=== PATIENT | female | born 1995 | race Caucasian/White ===

== ENCOUNTER 2017-02-08 00:42 | Outpatient (CLI) | payer MEDICAID, OTHER ==
[~2017-02-08] VITALS: Ht 154.9 cm; Wt 87.7 kg
[2017-02-08 00:46] VITALS: Ht 154.9 cm; Wt 87.7 kg
[2017-02-08 01:15] VITALS: BP 110/60; PULSE 85; RESP 18
[2017-02-08] MEDS ORDERED: PRENAT PO (01:19)
[2017-02-08 01:55] LABS: ADD SCAN DIFF NO; BASOPHIL # 0.1 10^3/ul (0.0-0.1); BASOPHILS % 0.4 % (0.0-2.0); EOSINOPHILS # 0.1 10^3/ul (0.0-0.5); EOSINOPHILS % 1.1 % (0.0-7.0); HEMATOCRIT 32.4 % (37.0-47.0); HEMOGLOBIN 10.3 g/dl (12.0-16.0); LYMPHOCYTES # 1.9 10^3/ul (0.8-2.9); LYMPHOCYTES % 16.4 % (15.0-51.0); MEAN CORPUSCULAR HEMOGLOBIN 28.9 pg (29.0-33.0); MEAN CORPUSCULAR HGB CONC 31.8 g/dl (32.0-37.0); MEAN CORPUSCULAR VOLUME 90.8 fl (82.0-101.0); MEAN PLATELET VOLUME 10.5 fl (7.4-10.4); MONOCYTE # 0.9 10^3/ul (0.3-0.9); MONOCYTES % 7.8 % (0.0-11.0); NEUTROPHIL # 8.7 10^3/ul (1.6-7.5); NEUTROPHILS % 73.8 % (39.0-77.0); PLATELET COUNT 386 10^3/UL (140-415); RED BLOOD COUNT 3.57 10^6/ul (4.20-5.40); RED CELL DISTRIBUTION WIDTH 12.5 % (11.5-14.5); WHITE BLOOD COUNT 11.7 10^3/ul (4.8-10.8)
[2017-02-08 02:08] LABS: ALBUMIN 3.2 g/dl (3.3-4.9)
[2017-02-08 02:09] LABS: POTASSIUM 3.8 mmol/L (3.5-5.1)
[2017-02-08 02:11] LABS: BILIRUBIN,INDIRECT 0.2 mg/dl (0-1.1); BILIRUBIN,TOTAL 0.2 mg/dl (0.2-1.3); CREATININE 0.51 mg/dl (0.44-1.00)
[2017-02-08 02:12] LABS: CALCIUM 8.9 mg/dl (8.4-10.2); TOTAL PROTEIN 6.4 g/dl (6.1-8.1)
--- NOTE | 2017-02-08 03:32 | HP ---
Date/Time of Note Date/Time of Note DATE: 02/08/17 TIME: 03:27 OB - History Hx of Present Free Text/Dictation 22 YO G1 with IUP at 31 weeks. she is visiting from [place]. I am the Laborist. she reports for mild constant pain around the umbilicus. she denies uterine contractions or cramps. she denies passage of water per vagina or vaginal bleeding. she reports good movements. she also reports hematemesis once and nose bleeds. Care: Other (she lives in [place] and records not available) Obstetrical Complications: None Medical Complications: None Past Family/Social History * Past Medical, Surgical, Family and Obstetric Histories reviewed from chart. OB Admission Exam Vital Signs Vital Signs Vital Signs Date Time Temp Pulse Resp B/P Pulse Ox O2 Delivery O2 Flow Rate FiO2 02/08/17 01:15 98.3 85 18 110/60 Room Air Physical Exam HEENT: WNL Heart: Rhythm Normal Lungs: Clear, Equal Abdomen: WNL Extremities: Normal Reflexes: Normal Cervical Dilatation: None Effacement: 0% Station: Ballotable Membranes: Intact Last 72 hours Lab Results CBC & BMP 02/08/17 01:40 Liver Function Test 02/08/17 01:40 Alanine Aminotransferase (ALT/SGPT) 19 Albumin 3.2 L Alkaline Phosphatase 109 Aspartate Amino Transf (AST/SGOT) 17 Direct Bilirubin 0.00 Total Protein 6.4 OB Assessment/Plan Reason for admission: other (all her complaints are resolved at this time. I recommended her to see her OB tomorrow) Other plan: d/c home TAL BASILIO MD Feb 08, 2017 03:32
--- NOTE | 2017-02-08 04:37 | TRIAGE ---
OB Triage Datetime Report Generated by CPN: 02/08/2017 04:37 Datetime: 02/08/2017 03:19 Stage of : OB Triage Labor Evaluation Frequency: 0 Monitor Mode: External Resting Tone Volta: Relaxed Heart Rate FHR Baseline Rate: 140 Monitor Mode: External US Variability: Moderate 6-25 bpm Accelerations: 15X15 Decelerations: None Category: Category I Pain Assessment Pain Presence: None/Denies Pain Type: N/A Datetime: 02/08/2017 03:04 Stage of : OB Triage Datetime: 02/08/2017 02:51 Stage of : OB Triage Datetime: 02/08/2017 02:34 Stage of : OB Triage Datetime: 02/08/2017 02:00 Stage of : OB Triage Labor Evaluation Frequency: x3 Monitor Mode: External Duration (sec)2399: 40-90 Quality: Mild Resting Tone Volta: Relaxed Heart Rate FHR Baseline Rate: 150 Variability: Moderate 6-25 bpm Accelerations: 15X15 Decelerations: None Category: Category I Datetime: 02/08/2017 01:40 Stage of : OB Triage Datetime: 02/08/2017 01:28 Stage of : OB Triage Datetime: 02/08/2017 01:09 Stage of : OB Triage Datetime: 02/08/2017 01:00 Assessment Type: Triage Maternal Assessment Level of Consciousness: Fully Conscious DTR's/Clonus: DTRs 1+; No Clonus Headache: Occipital Blurred Vision: No Respiratory Effort: Unlabored Breath Sounds, Left: Clear and Equal Breath Sounds, Right: Clear and Equal Nausea/Vomiting: Present (Annotations: 1 EPISODE OF EMESIS AT 0000) RUQ Epigastric Pain: Denies Lower Extremities Edema: Bilateral Lower Extremities Degree: 2+ Upper Extremities Edema: Bilateral Upper Extremities Degree: 1+ Facial Edema: None Fall Risk Assessment History of Falling: (0) No Secondary Diagnosis: (0) No Ambulatory Aid: (0) Bedrest/Nurse Assist IV Therapy: (0) No Gait: (0) Normal/Bedrest/Immobile Mental Status: (0) Oriented to Own Ability Fall Score: 0 Fall Risk Score Definition: No Risk: No action required Datetime: 02/08/2017 00:53 Stage of : OB Triage Monitor Mode: External Monitor Mode: External US Datetime: 02/08/2017 00:48 Time of Arrival: 02/08/2017 04:00 EGA: 31.2 Arrived By: Wheelchair Arrived From: Home Chief Complaint: Nose bleedx1, emesis x 1 with small amount of blood Movement: Present Contractions: Denies/Absent Rupture of Membranes: Denies Vaginal Bleeding: None Vaginal Discharge: Denies Recent Sexual Intercouse: Denies Abdominal Trauma: Not Applicable Patient Complaints: Vomiting; Other Additional Patient Complaints: Pt states she lives in [place] where she gets regular care . Initial Plan: VS, EFM, CBC, CMP
== END 2017-02-08 03:30 | disposition home or self-care (01) ==
LOC: OBT 00:42 → L-D 00:42 → OBT 03:30
PROVIDERS: ATTEND Specialist
DX: O26.893 Other specified pregnancy related conditions, third trimester (principal); R10.33 Periumbilical pain; Z3A.31 31 weeks gestation of pregnancy
CPT/HCPCS: 36415; 80053; 85025; Z7500; G0463